=== PATIENT | female | born 1985 | race Caucasian/White ===

== ENCOUNTER 2016-08-04 12:02 | Emergency (ER) | payer SELFPAY ==
[~2016-08-04] VITALS: Ht 157.5 cm; Wt 52.2 kg
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
--- NOTE | 2016-08-04 12:52 | NUR ---
AUDRA ARIAS AT BEDSIDE FOR EVAL.
--- NOTE | 2016-08-04 12:58 | NUR ---
CALLED JAKE MILLER, TO COME SEE PT, SAID SHE WILL BE HERE IN 30 MIN
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
[2016-08-04] MEDS ORDERED: IV NS 0.9% 1,000 ML BAG IV ONE (13:00)
[2016-08-04 13:03] LABS: BASOPHILS % (AUTO) 0.4 % (0.0-2.0); EOSINOPHILS % (AUTO) 0.2 % (0.0-6.0); HEMATOCRIT 45 % (33-45); HEMOGLOBIN 15.1 g/dL (11.5-14.8); LYMPHOCYTES # (AUTO) 1.6 /CMM (0.8-4.8); LYMPHOCYTES % (AUTO) 18.2 % (20.0-44.0); MEAN CORPUSCULAR HEMOGLOBIN 32 PG (26.0-33.0); MEAN CORPUSCULAR HGB CONC 34 g/dl (31.0-36.0); MEAN CORPUSCULAR VOLUME 95 fL (82-100); MONOCYTES # (AUTO) 0.7 /CMM (0.1-1.30); MONOCYTES % (AUTO) 7.6 % (2.0-12.0); NEUTROPHILS # (AUTO) 6.5 /CMM (1.8-8.9); NEUTROPHILS % (AUTO) 73.6 % (43.0-81.0); PLATELET COUNT (AUTO) 209 /CMM (150-450); WHITE BLOOD COUNT (AUTO) 8.8 K/uL (4.3-11.0)
[2016-08-04] MEDS ORDERED: IV NS 0.9% 1,000 ML IV ONE (13:04)
[2016-08-04] MEDS ORDERED: IV SET PRIMARY 1 EA INFUS.SET MC ONE (13:05)
--- NOTE | 2016-08-04 13:11 | NUR ---
PD AT BEDSIDE TALKING TO PT.
[2016-08-04 13:13] LABS: CALCIUM, SERUM 9.5 mg/dL (8.5-10.1); CREATININE 0.9 mg/dL (0.6-1.3); POTASSIUM 4.3 mmol/L (3.5-5.1)
[2016-08-04 13:19] LABS: ALBUMIN 4.3 g/dL (3.4-5.0); BILIRUBIN,DIRECT 0.2 mg/dL (0.0-0.2); BILIRUBIN,TOTAL 0.8 mg/dL (0.2-1.0); TOTAL PROTEIN, SERUM 8.2 g/dL (6.4-8.2)
[2016-08-04 13:24] LABS: INR 0.94 (0.87-1.13); PROTHROMBIN TIME 9.8 SECS (9.5-12.7)
[2016-08-04] MEDS ORDERED: IOHEXOL-350 100 ML VIAL IV ONE (13:38)
[2016-08-04] MEDS ORDERED: CT SWABBABLE VALVE TRANS SET 1 EA INFUS.SET MC ONE (13:38)
[2016-08-04] MEDS ORDERED: IV NS 0.9% 250 ML IV ONE (13:38)
--- NOTE | 2016-08-04 13:50 | NUR ---
PT TO RADIOLOGY FOR HEAD, NECK CT VIA WHEELCHAIR.
--- NOTE | 2016-08-04 14:10 | NUR ---
RADIOLOGY AT BEDSIDE FOR CHEST XRAY.
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
--- NOTE | 2016-08-04 15:23 | NUR ---
Patient discharged to home in stable condition. Written and verbal after care instructions given. Patient verbalizes understanding of instruction.IV removed. Catheter intact and site benign. Pressure and 4x4 applied to site. No bleeding noted.
[2016-08-04 15:24] VITALS: BP 130/64
== END 2016-08-04 15:25 | disposition home or self-care (01) ==
LOC: ER 12:04
DX: R51 Headache (principal); R11.2 Nausea with vomiting, unspecified; R42 Dizziness and giddiness; R79.1 Abnormal coagulation profile; S60.512A Abrasion of left hand, initial encounter; S60.511A Abrasion of right hand, initial encounter; S10.91XA Abrasion of unspecified part of neck, initial encounter; S80.212A Abrasion, left knee, initial encounter; S80.211A Abrasion, right knee, initial encounter; Y04.2XXA Assault by strike against or bumped into by another person, initial encounter; Y93.89 Activity, other specified; Y92.89 Other specified places as the place of occurrence of the external cause; Y99.9 Unspecified external cause status
CPT/HCPCS: 36415; 70450-TC; 70498-TC; 71010-TC; 80048-TC; 80076-TC; 84703-TC; 85025-TC; 85730-TC; A4606; J7040; J7050; Q9967; Z7610